=== PATIENT | female | born 1980 ===

== ENCOUNTER 2017-09-14 20:01 | Emergency (ER) | payer OTHER ==
[2017-09-14 20:16] VITALS: BP 142/85
== END 2017-09-14 21:55 | disposition home or self-care (01) ==
LOC: ED 20:01
DX: T23.271A Burn of second degree of right wrist, initial encounter (principal); T31.0 Burns involving less than 10% of body surface; T79.9XXA Unspecified early complication of trauma, initial encounter; X10.2XXA Contact with fats and cooking oils, initial encounter; Y93.89 Activity, other specified; Y92.89 Other specified places as the place of occurrence of the external cause; Y99.8 Other external cause status
CPT/HCPCS: 90715